=== PATIENT | male | born 1980 | race Caucasian/White ===

== ENCOUNTER 2018-03-17 05:30 | Inpatient (IN) | payer BC ==
[2018-03-17] MEDS ORDERED: DOCUSATE SODIUM 100 MG CAP PO (07:00)
[2018-03-17] MEDS ORDERED: BISACODYL (EC) 5 MG TAB PO (07:00)
[2018-03-17] MEDS ORDERED: ACETAMINOPHEN 325 MG TAB PO (07:00)
[2018-03-17] MEDS ORDERED: NACL 0.9% 3 ML SYG IV (07:00)
[2018-03-17] MEDS: TAMSULOSIN (SR) 0.4 MG CAP PO ×2 (07:46→20:00)
[2018-03-17] MEDS: SOD CHLORIDE 0.9% 1,000 ML IV ×2 (07:48→18:12)
[2018-03-17] MEDS: HYDROmorphONE 0.5 MG/0.5 ML SYG IV (07:48)
[2018-03-17 08:43] LABS: ADD MAN DIFF? NO
[2018-03-17 08:47] LABS: BASOPHILS % 0.3 % (0.0-2.0); EOSINOPHILS # 0.1 10^3/ul (0.0-0.5); EOSINOPHILS % 0.7 % (0.0-7.0); HEMATOCRIT 42.6 % (42.0-52.0); HEMOGLOBIN 15.1 g/dl (14.0-18.0); LYMPHOCYTES % 32.4 % (15.0-51.0); MEAN CORPUSCULAR HEMOGLOBIN 31.6 pg (29.0-33.0); MEAN CORPUSCULAR HGB CONC 35.4 g/dl (32.0-37.0); MEAN CORPUSCULAR VOLUME 89.1 fl (82.0-101.0); MEAN PLATELET VOLUME 10.3 fl (7.4-10.4); MONOCYTE # 0.6 10^3/ul (0.3-0.9); MONOCYTES % 6.8 % (0.0-11.0); NEUTROPHIL # 5.5 10^3/ul (1.6-7.5); NEUTROPHILS % 59.5 % (39.0-77.0); PLATELET COUNT 232 10^3/UL (140-415); RED BLOOD COUNT 4.78 10^6/ul (4.70-6.10)
[2018-03-17 08:47] LABS: WHITE BLOOD COUNT 9.2 10^3/ul (4.8-10.8)
[2018-03-17 09:13] LABS: ALANINE AMINOTRANSFERASE 69 IU/L (13-69); ALBUMIN 3.4 g/dl (3.3-4.9); ALBUMIN/GLOBULIN RATIO 1.21; ALKALINE PHOSPHATASE 44 IU/L (42-121); ANION GAP 12 (8-16); ASPARTATE AMINO TRANSFERASE 28 IU/L (15-46); BILIRUBIN,INDIRECT 0.2 mg/dl (0-1.1); BILIRUBIN,TOTAL 0.2 mg/dl (0.2-1.3); BLOOD UREA NITROGEN 12 mg/dl (7-20); CALCIUM 7.8 mg/dl (8.4-10.2); CARBON DIOXIDE 25 mmol/L (21-31); CHLORIDE 110 mmol/L (97-110); CREATININE 0.72 mg/dl (0.61-1.24); GLUCOSE 94 mg/dl (70-220); SODIUM 143 mmol/L (135-144); TOTAL PROTEIN 6.2 g/dl (6.1-8.1)
[2018-03-17 09:14] LABS: CHOLESTEROL 178 mg/dl (100-200)
[2018-03-17 09:14] LABS: CHOL/HDL RATIO 8.4 RATIO; HDL CHOLESTEROL 21 mg/dl (27-67); LDL CHOLESTEROL,CALCULATED 112 mg/dl; TRIGLYCERIDES 224 mg/dl (0-149)
[2018-03-17] MEDS: FLUTICASONE 0.05% 16 GM NAS SPRAY NASAL ×2 (09:39→20:00)
[2018-03-17 12:18] LABS: ADD UMIC YES; UR ASCORBIC ACID NEGATIVE (NEGATIVE); UR BILIRUBIN (Dip) NEGATIVE (NEGATIVE); UR BLOOD (Dip) 3+ mg/dL (NEGATIVE); UR CLARITY CLEAR (CLEAR); UR COLOR YELLOW (YELLOW); UR GLUCOSE (Dip) NEGATIVE (NEGATIVE); UR KETONES (Dip) NEGATIVE (NEGATIVE); UR LEUKOCYTE ESTERASE (Dip) NEGATIVE Leu/ul (NEGATIVE); UR MUCUS FEW /HPF (NONE SEEN); UR NITRITE (Dip) NEGATIVE (NEGATIVE); UR RBC 151 /HPF (0-5); UR SPECIFIC GRAVITY (Dip) 1.015 (1.003-1.030); UR TOTAL PROTEIN (Dip) NEGATIVE (NEGATIVE); UR UROBILINOGEN (Dip) NEGATIVE (NEGATIVE); UR WBC 2 /HPF (0-5)
[2018-03-17] MEDS: LORATADINE/PSEUDOEPHED (SR) TAB PO ×2 (12:35→20:00)
[2018-03-17] MEDS: morphine 2 MG INJ IV ×2 (13:43→19:56)
[2018-03-18] MEDS: AL HYDROX/MG HYDROX/SIMETH 30 ML CUP PO (01:48)
[2018-03-18] MEDS: SOD CHLORIDE 0.9% 1,000 ML IV ×3 (02:49→15:20)
[2018-03-18] MEDS: ONDANSETRON 4 MG INJ IV (05:40)
[2018-03-18] MEDS: PANTOPRAZOLE (EC) 40 MG TAB PO (05:49)
[2018-03-18] MEDS: KETOROLAC 30 MG INJ IV (05:54)
[2018-03-18] MEDS: LORATADINE/PSEUDOEPHED (SR) TAB PO ×2 (08:18→20:25)
[2018-03-18] MEDS: FLUTICASONE 0.05% 16 GM NAS SPRAY NASAL ×2 (08:18→20:25)
[2018-03-18] MEDS: CIPROFLOXACIN HCL OTIC DROP 0.25 ML RIGHT EAR ×2 (11:49→20:25)
[2018-03-18] MEDS: morphine 2 MG INJ IV (20:25)
[2018-03-18] MEDS: TAMSULOSIN (SR) 0.4 MG CAP PO (20:25)
[2018-03-19] MEDS: SOD CHLORIDE 0.9% 1,000 ML IV ×4 (02:46→20:14)
[2018-03-19] MEDS: PANTOPRAZOLE 40 MG INJ IV (05:45)
[2018-03-19 06:51] LABS: INR 0.96; PROTIME 12.9 Sec (11.9-14.9)
[2018-03-19 06:52] LABS: PARTIAL THROMBOPLASTIN TIME 29.5 Sec (25.0-35.0)
[2018-03-19] MEDS: CIPROFLOXACIN HCL OTIC DROP 0.25 ML RIGHT EAR ×2 (08:46→20:12)
[2018-03-19] MEDS: FLUTICASONE 0.05% 16 GM NAS SPRAY NASAL ×2 (08:46→20:12)
[2018-03-19] MEDS: morphine 2 MG INJ IV ×2 (08:47→20:12)
[2018-03-19] MEDS: LORATADINE/PSEUDOEPHED (SR) TAB PO ×2 (08:47→20:12)
[2018-03-19] MEDS: KETOROLAC 30 MG INJ IV ×2 (10:49→23:21)
[2018-03-19] MEDS ORDERED: ROCURONIUM 50 MG INJ (17:12)
[2018-03-19] MEDS ORDERED: MIDAZOLAM 1 MG/ML 2 ML INJ (17:12)
[2018-03-19] MEDS ORDERED: PROPOFOL 20 ML (17:12)
[2018-03-19] MEDS ORDERED: CEFAZOLIN 1 GM INJ (17:12)
[2018-03-19] MEDS ORDERED: EPHEDrine SULFATE 50 MG/5 ML SYG IV (17:30)
[2018-03-19] MEDS ORDERED: FENTAnyl 50 MCG/ML VIAL IV ×2 (17:30)
[2018-03-19] MEDS ORDERED: hydrALAzine 20 MG INJ IV (17:30)
[2018-03-19] MEDS ORDERED: METOCLOPRAMIDE 10 MG INJ IV (17:30)
[2018-03-19] MEDS ORDERED: MEPERIDINE 25 MG INJ IV (17:30)
[2018-03-19] MEDS ORDERED: DIPHENHYDRAMINE 50 MG INJ IV (17:30)
[2018-03-19] MEDS ORDERED: LABETALOL HCL 20MG INJ IV (17:30)
[2018-03-19] MEDS ORDERED: DEXAMETHASONE 4 MG/ML 1 ML INJ (18:33)
[2018-03-19] MEDS ORDERED: METOCLOPRAMIDE 10 MG INJ (18:33)
[2018-03-19] MEDS ORDERED: KETOROLAC 30 MG INJ (18:33)
[2018-03-19] MEDS ORDERED: ONDANSETRON 4 MG INJ (18:33)
[2018-03-19] MEDS ORDERED: SUGAMMADEX SODIUM 200 MG/2 ML VIAL IV (18:33)
[2018-03-19] MEDS: FENTAnyl 50 MCG/ML VIAL IV (19:32)
[2018-03-19] MEDS: ONDANSETRON 4 MG INJ IV (19:32)
[2018-03-20] MEDS: morphine 2 MG INJ IV (03:12)
[2018-03-20] MEDS: SOD CHLORIDE 0.9% 1,000 ML IV (03:16)
[2018-03-20] MEDS: PANTOPRAZOLE 40 MG INJ IV (05:38)
[2018-03-20] MEDS: KETOROLAC 30 MG INJ IV (06:55)
[2018-03-20] MEDS: CIPROFLOXACIN HCL OTIC DROP 0.25 ML RIGHT EAR (09:02)
[2018-03-20] MEDS: FLUTICASONE 0.05% 16 GM NAS SPRAY NASAL (09:02)
[2018-03-20] MEDS: LORATADINE/PSEUDOEPHED (SR) TAB PO (09:02)
== END 2018-03-20 14:05 | disposition home or self-care (01) | DRG 669 ==
LOC: MS2 05:30
PROVIDERS: Family Medicine
PROC: 0TC78ZZ Extirpation of Matter from Left Ureter, Via Natural or Artificial Opening Endoscopic (ICD-10-PCS; principal; 2018-03-19 17:30)
PROC: 0T778DZ Dilation of Left Ureter with Intraluminal Device, Via Natural or Artificial Opening Endoscopic (ICD-10-PCS; 2018-03-19 17:30)
DX: N13.2 Hydronephrosis with renal and ureteral calculous obstruction (principal); K21.9 Gastro-esophageal reflux disease without esophagitis; E78.1 Pure hyperglyceridemia; H66.91 Otitis media, unspecified, right ear; F17.210 Nicotine dependence, cigarettes, uncomplicated; E66.9 Obesity, unspecified; Z68.29 Body mass index [BMI] 29.0-29.9, adult; Z90.49 Acquired absence of other specified parts of digestive tract
CPT/HCPCS: 71045; 74018; 74430; 80053; 80061; 81001; 83036; 83735; 84443; 85025; 85610; 85730; 88300; 93005

== ENCOUNTER 2018-05-18 18:23 | Observation (INO) | payer BC ==
[2018-05-18] MEDS: ONDANSETRON 4 MG INJ IV ×2 (20:47→22:55)
[2018-05-18] MEDS: morphine 4 MG/ML VIAL IV ×2 (20:47→22:55)
[2018-05-18] MEDS: ASPIRIN 325 MG TAB PO (20:48)
[2018-05-18] MEDS: NITROGLYCERIN 2% 1 GM OINT PKT TD (20:50)
[2018-05-18 21:30] LABS: ADD MAN DIFF? NO
[2018-05-18 21:33] LABS: BASOPHIL # 0.1 10^3/ul (0.0-0.1); BASOPHILS % 0.5 % (0.0-2.0); EOSINOPHILS # 0.1 10^3/ul (0.0-0.5); EOSINOPHILS % 0.9 % (0.0-7.0); HEMATOCRIT 47.7 % (42.0-52.0); HEMOGLOBIN 16.7 g/dl (14.0-18.0); LYMPHOCYTES # 3.5 10^3/ul (0.8-2.9); LYMPHOCYTES % 32.3 % (15.0-51.0); MEAN CORPUSCULAR HEMOGLOBIN 31.2 pg (29.0-33.0); MEAN CORPUSCULAR VOLUME 89.2 fl (82.0-101.0); MEAN PLATELET VOLUME 10.2 fl (7.4-10.4); MONOCYTES % 8.9 % (0.0-11.0); NEUTROPHIL # 6.1 10^3/ul (1.6-7.5); PLATELET COUNT 274 10^3/UL (140-415); RED BLOOD COUNT 5.35 10^6/ul (4.70-6.10); RED CELL DISTRIBUTION WIDTH 12.1 % (11.5-14.5)
[2018-05-18 21:33] LABS: WHITE BLOOD COUNT 10.7 10^3/ul (4.8-10.8)
[2018-05-18 21:50] LABS: INR 0.93; PARTIAL THROMBOPLASTIN TIME 28.4 Sec (25.0-35.0); PROTIME 12.6 Sec (11.9-14.9)
[2018-05-18 21:56] LABS: ALANINE AMINOTRANSFERASE 148 IU/L (13-69); ALBUMIN 4.3 g/dl (3.3-4.9); ALBUMIN/GLOBULIN RATIO 1.26; ALKALINE PHOSPHATASE 59 IU/L (42-121); ANION GAP 16 (8-16); ASPARTATE AMINO TRANSFERASE 51 IU/L (15-46); BILIRUBIN,INDIRECT 0.3 mg/dl (0-1.1); BILIRUBIN,TOTAL 0.3 mg/dl (0.2-1.3); BLOOD UREA NITROGEN 14 mg/dl (7-20); CALCIUM 9.1 mg/dl (8.4-10.2); CARBON DIOXIDE 24 mmol/L (21-31); CHLORIDE 104 mmol/L (97-110); CREATININE 0.75 mg/dl (0.61-1.24); GLUCOSE 83 mg/dl (70-220); POTASSIUM 4.3 mmol/L (3.5-5.1); SODIUM 140 mmol/L (135-144); TOTAL PROTEIN 7.7 g/dl (6.1-8.1)
[2018-05-18 22:05] LABS: TROPONIN-I < 0.012 ng/ml (0.000-0.120)
[2018-05-18] MEDS ORDERED: ONDANSETRON 4 MG INJ IV (22:30)
[2018-05-18] MEDS: ACETAMINOPHEN 325 MG TAB PO (22:56)
[2018-05-19] MEDS ORDERED: ACETAMINOPHEN 325 MG TAB PO ×2 (01:30→02:00)
[2018-05-19] MEDS ORDERED: NACL 0.9% 3 ML SYG IV (02:00)
[2018-05-19] MEDS ORDERED: ALBUTEROL/IPRATROPIUM (NEB) 3 ML AMP HHN (02:00)
[2018-05-19] MEDS ORDERED: ONDANSETRON 4 MG INJ IV (02:00)
[2018-05-19 02:58] LABS: CREATINE KINASE 100 IU/L (23-200)
[2018-05-19 03:09] LABS: CK INDEX 0.5
[2018-05-19 03:10] LABS: TROPONIN-I < 0.012 ng/ml (0.000-0.120)
[2018-05-19] MEDS: PANTOPRAZOLE (EC) 40 MG TAB PO (05:33)
[2018-05-19] MEDS: ACETAMINOPHEN 325 MG TAB PO (05:33)
[2018-05-19] MEDS: NITROGLYCERIN (SL) 0.4 MG TAB SL ×3 (06:38→06:50)
[2018-05-19 07:03] LABS: ADD MAN DIFF? NO
[2018-05-19] MEDS: morphine 4 MG/ML VIAL IV (07:12)
[2018-05-19 07:14] LABS: BASOPHILS % 0.3 % (0.0-2.0); EOSINOPHILS # 0.1 10^3/ul (0.0-0.5); EOSINOPHILS % 0.8 % (0.0-7.0); HEMATOCRIT 45.6 % (42.0-52.0); HEMOGLOBIN 15.7 g/dl (14.0-18.0); LYMPHOCYTES # 3.2 10^3/ul (0.8-2.9); LYMPHOCYTES % 24.8 % (15.0-51.0); MEAN CORPUSCULAR HEMOGLOBIN 31.2 pg (29.0-33.0); MEAN CORPUSCULAR HGB CONC 34.4 g/dl (32.0-37.0); MEAN CORPUSCULAR VOLUME 90.5 fl (82.0-101.0); MEAN PLATELET VOLUME 9.8 fl (7.4-10.4); MONOCYTE # 0.8 10^3/ul (0.3-0.9); MONOCYTES % 6.3 % (0.0-11.0); NEUTROPHIL # 8.6 10^3/ul (1.6-7.5); NEUTROPHILS % 67.3 % (39.0-77.0); PLATELET COUNT 235 10^3/UL (140-415); RED BLOOD COUNT 5.04 10^6/ul (4.70-6.10); RED CELL DISTRIBUTION WIDTH 12.2 % (11.5-14.5)
[2018-05-19 07:14] LABS: WHITE BLOOD COUNT 12.8 10^3/ul (4.8-10.8)
[2018-05-19 07:36] LABS: CREATINE KINASE 92 IU/L (23-200)
[2018-05-19 07:49] LABS: CK INDEX 0.6
[2018-05-19 07:51] LABS: CK-MB 0.54 ng/ml (0.0-2.4); TROPONIN-I < 0.012 ng/ml (0.000-0.120)
[2018-05-19 08:02] LABS: ALANINE AMINOTRANSFERASE 132 IU/L (13-69); ALBUMIN/GLOBULIN RATIO 1.66; ALKALINE PHOSPHATASE 52 IU/L (42-121); ANION GAP 16 (8-16); ASPARTATE AMINO TRANSFERASE 42 IU/L (15-46); BILIRUBIN,INDIRECT 0.5 mg/dl (0-1.1); BILIRUBIN,TOTAL 0.5 mg/dl (0.2-1.3); BLOOD UREA NITROGEN 19 mg/dl (7-20); CALCIUM 8.9 mg/dl (8.4-10.2); CARBON DIOXIDE 27 mmol/L (21-31); CHLORIDE 102 mmol/L (97-110); CHOL/HDL RATIO 8.7 RATIO; CHOLESTEROL 193 mg/dl (100-200); CREATININE 0.78 mg/dl (0.61-1.24); GLUCOSE 115 mg/dl (70-220); HDL CHOLESTEROL 22 mg/dl (27-67); LDL CHOLESTEROL,CALCULATED 96 mg/dl; MAGNESIUM 1.7 mg/dl (1.7-2.5); POTASSIUM 4.1 mmol/L (3.5-5.1); SODIUM 141 mmol/L (135-144); TOTAL PROTEIN 6.4 g/dl (6.1-8.1); TRIGLYCERIDES 373 mg/dl (0-149)
[2018-05-19] MEDS: ASPIRIN (EC) 81 MG TAB PO (09:00)
[2018-05-19] MEDS: ENOXAPARIN 40 MG/0.4 ML SYG SC (09:00)
[2018-05-19 09:46] LABS: HEMOGLOBIN A1C 5.2 % (0-5.9)
[2018-05-19] MEDS: ASPIRIN 81 MG TAB PO (10:32)
[2018-05-19] MEDS: morphine 2 MG INJ IV ×2 (14:25→19:42)
[2018-05-19] MEDS ORDERED: IBUPROFEN 600 MG TAB PO (17:30)
[2018-05-20 05:24] LABS: ADD MAN DIFF? NO
[2018-05-20 05:36] LABS: WHITE BLOOD COUNT 8.1 10^3/ul (4.8-10.8)
[2018-05-20 05:36] LABS: BASOPHILS % 0.5 % (0.0-2.0); EOSINOPHILS # 0.1 10^3/ul (0.0-0.5); EOSINOPHILS % 1.6 % (0.0-7.0); HEMOGLOBIN 15.9 g/dl (14.0-18.0); LYMPHOCYTES # 3.3 10^3/ul (0.8-2.9); LYMPHOCYTES % 40.4 % (15.0-51.0); MEAN CORPUSCULAR HEMOGLOBIN 31.7 pg (29.0-33.0); MEAN CORPUSCULAR HGB CONC 35.3 g/dl (32.0-37.0); MEAN CORPUSCULAR VOLUME 89.6 fl (82.0-101.0); MEAN PLATELET VOLUME 9.8 fl (7.4-10.4); MONOCYTE # 0.7 10^3/ul (0.3-0.9); MONOCYTES % 8.3 % (0.0-11.0); NEUTROPHILS % 48.8 % (39.0-77.0); PLATELET COUNT 218 10^3/UL (140-415); RED BLOOD COUNT 5.02 10^6/ul (4.70-6.10); RED CELL DISTRIBUTION WIDTH 11.8 % (11.5-14.5)
[2018-05-20 05:38] LABS: ANION GAP 15 (8-16); BLOOD UREA NITROGEN 14 mg/dl (7-20); CALCIUM 8.5 mg/dl (8.4-10.2); CARBON DIOXIDE 27 mmol/L (21-31); CHLORIDE 104 mmol/L (97-110); CREATININE 0.74 mg/dl (0.61-1.24); GLUCOSE 91 mg/dl (70-220); PHOSPHORUS 3.2 mg/dl (2.5-4.9); POTASSIUM 4.3 mmol/L (3.5-5.1); SODIUM 142 mmol/L (135-144)
[2018-05-20] MEDS: PANTOPRAZOLE (EC) 40 MG TAB PO (06:16)
[2018-05-20] MEDS: ENOXAPARIN 40 MG/0.4 ML SYG SC (09:00)
[2018-05-20] MEDS: ASPIRIN 81 MG TAB PO (09:32)
[2018-05-20] MEDS: NICOTINE (14 MG/24 HR) PATCH TRANSDERM (09:32)
[2018-05-20 10:44] LABS: ADD UMIC NO; UR ASCORBIC ACID NEGATIVE (NEGATIVE); UR BILIRUBIN (Dip) NEGATIVE (NEGATIVE); UR BLOOD (Dip) NEGATIVE (NEGATIVE); UR CLARITY CLEAR (CLEAR); UR COLOR YELLOW (YELLOW); UR GLUCOSE (Dip) NEGATIVE (NEGATIVE); UR KETONES (Dip) NEGATIVE (NEGATIVE); UR LEUKOCYTE ESTERASE (Dip) NEGATIVE Leu/ul (NEGATIVE); UR NITRITE (Dip) NEGATIVE (NEGATIVE); UR SPECIFIC GRAVITY (Dip) 1.018 (1.003-1.030); UR TOTAL PROTEIN (Dip) NEGATIVE (NEGATIVE); UR UROBILINOGEN (Dip) NEGATIVE (NEGATIVE)
== END 2018-05-20 12:30 | disposition home or self-care (01) ==
LOC: TEL 22:28 → E/R 18:23 → MS1 05-19 23:54
DX: R07.9 Chest pain, unspecified (principal)
CPT/HCPCS: 36415; 71045; 73030; 80048; 80053; 80061; 81003; 82550; 82553; 83036; 83735; 84100; 84443; 84484; 85025; 85610; 85730; 93005; 93306; 96374; 96375; 96376; 99285-25; G0378